=== PATIENT | female | born 1980 | race Caucasian/White ===

== ENCOUNTER 2021-02-23 20:05 | Emergency (ER) | payer BC ==
[2021-02-23 20:20] VITALS: BP 151/103; PULSE 91; TEMP 97.6; BMI 38.6
[2021-02-23] MEDS ORDERED: predniSONE 20 MG TABLET (UD) PO ONE (20:46)
[2021-02-23] MEDS ORDERED: predniSONE 20 MG TABLET (UD) ONE (20:52)
== END 2021-02-23 21:06 | disposition home or self-care (01) ==
LOC: FER 20:05
DX: M26.601 Right temporomandibular joint disorder, unspecified (principal)
CPT/HCPCS: 99283-25

== ENCOUNTER 2021-05-05 15:15 | Emergency (ER) | payer BC ==
[2021-05-05 15:31] VITALS: BP 121/67; PULSE 87; TEMP 97.8; BMI 39.8
[2021-05-05] MEDS ORDERED: SODIUM CHLORIDE 0.9% 1000 ML INFUS.BAG IV ONE (15:43)
[2021-05-05] MEDS ORDERED: METOCLOPRAMIDE HCL INJECTION 10 MG/2 ML VIAL IVPUSH ONE (15:44)
[2021-05-05] MEDS ORDERED: ACETAMINOPHEN 1000 MG/100 ML BAG IVPB ONE (15:45)
[2021-05-05] MEDS ORDERED: METOCLOPRAMIDE HCL INJECTION 10 MG/2 ML VIAL ONE (15:57)
[2021-05-05] MEDS ORDERED: ACETAMINOPHEN INJECTION 100 ML IVPB ONE (15:57)
[2021-05-05 15:59] LABS: HCG,QUALITATIVE URINE Negative
[2021-05-05 16:15] LABS: ALBUMIN 3.9 g/dl (3.4-5.0); BILIRUBIN,TOTAL 0.5 mg/dl (0.2-1); CALCIUM 9.4 mg/dl (8.5-10); CREATININE 0.7 mg/dl (0.55-1.3)
[2021-05-05 16:43] LABS: EPITHELIAL CELLS FEW /hpf
[2021-05-05 17:53] LABS: BASO % 0.6 % (0-2.0); EOS % 1.5 % (0-4.5); HEMATOCRIT 38.2 % (32.4-45.2); HEMOGLOBIN 12.9 GM/dL (10.7-15.3); LYMPH % 22.1 % (8-40); MCH 29.9 pg (25.7-33.7); MCHC 33.7 g/dl (32.0-36.0); MEAN CELL VOLUME 88.9 fl (80-96); MEAN PLT VOLUME 8.6 fl (7.5-11.1); MONO % 7.6 % (3.8-10.2); NEUT % 68.2 % (42.8-82.8); PLATELET COUNT 279 10^3/uL (134-434); RBC 4.29 M/mm3 (3.60-5.2); RDW 12.9 % (11.6-15.6); WHITE BLOOD COUNT 6.3 K/mm3 (4.0-10.0)
== END 2021-05-05 19:31 | disposition home or self-care (01) ==
LOC: FER 15:15
PROC: 3E0333Z Introduction of Anti-inflammatory into Peripheral Vein, Percutaneous Approach (ICD-10-PCS; principal; 2021-05-05)
PROC: 3E033GC Introduction of Other Therapeutic Substance into Peripheral Vein, Percutaneous Approach (ICD-10-PCS; 2021-05-05)
DX: K92.1 Melena (principal)
CPT/HCPCS: 36415; 74177-TC; 80053; 81003; 81015; 82272; 83605; 83690; 84703; 85025; 99284-25; J0131; Q9967

== ENCOUNTER 2023-03-22 19:05 | Emergency (ER) | payer BC ==
[2023-03-22 19:20] VITALS: BP 139/103; PULSE 93; RESP 17; TEMP 97.7; BMI 38.9
== END 2023-03-22 19:59 | disposition home or self-care (01) ==
LOC: FER 19:05
DX: F06.4 Anxiety disorder due to known physiological condition (principal)
CPT/HCPCS: 99283-25